=== PATIENT | male | born 1995 | race African-American/Black ===

== ENCOUNTER 2024-06-22 17:00 | Emergency (ER) | payer OTHER ==
[2024-06-22] VITALS (13 sets, daily range): BP systolic 128–163; BP diastolic 85–111
[~2024-06-22] VITALS: Ht 182.9 cm; Wt 116.0 kg
[~2024-06-22 17:00] MED LIST: AMLODIPINE BESY10 MG PO; AUGMENTIN875TAB PO; BENZONATATE200 MG PO; CHLORTHALIDONE25 MG PO; CLARITIN10 M1 PO; CLONIDINE0.2 MG PO; COZAAR100 MG PO; EXCEDRI2 PO; FLONASE NASAL50 MCG; MEDDOSEPAK PO; MULTIVITAMIN1 TA1; NO MEDS; SUDAFED 12HR120 MG PO; THERAFL6 PO
[2024-06-22 17:53] LABS: BASO% 0.5 % (0-3); EOS% 1.4 % (0-8); HEMATOCRIT 48.5 % (39.0-50.0); HEMOGLOBIN 16.2 g/dl (14.0-18.0); IMMATURE GRANULOCYTES 0.2 % (0.0-5.0); LYMPH% 36.2 % (15-41); MEAN CELL VOLUME 84.2 fL CALC (80.0-100.0); MEAN CORPUSCULAR HGB 28.1 pG CALC (26.0-32.0); MEAN CORPUSCULAR HGB CONC 33.4 g/dL CAL (32.0-36.0); MONO% 7.4 % (2-13); NEUT# 5.97 thou/uL (1.82-7.42); NEUT% 54.3 % (42-76); RED BLOOD COUNT 5.76 mill/uL (4.70-6.10); RED CELL DISTRI WIDTH 14.2 % (11.5-15.5)
[2024-06-22 18:22] LABS: ALBUMIN 4.7 g/dL (3.2-5.0); BILIRUBIN, TOTAL 1.4 mg/dL (0.2-1.3); CREATININE 1.9 mg/dL (0.7-1.3); POTASSIUM 4.1 mmol/l (3.5-5.1); TOTAL PROTEIN 8.1 g/dL (6.3-8.2)
[2024-06-22] MEDS ORDERED: SODIUM CHLORIDE 0.9% 1,000 ML IV ONE ×2 (18:35→21:50)
[2024-06-22] MEDS ORDERED: OSELTAMIVIR PHOSPHATE 75 MG/TAB CAP PO ONE (19:05)
[2024-06-22] MEDS ORDERED: ONDANSETRON HCl 4 MG/2 ML SDV IV ONE (19:10)
[2024-06-22] MEDS ORDERED: hydrALAZINE HCL 20 MG/ML VIAL(1 ML) IV ONE (20:10)
[2024-06-22 20:49] LABS: CPK 481 u/l (55-170); LIPASE 40 u/l (23-300); MAGNESIUM 1.8 mg/dL (1.6-2.3)
[2024-06-22] MEDS ORDERED: NAPROXEN500 MG PO (21:52)
== END 2024-06-22 22:16 | disposition home or self-care (01) | DRG 195 ==
LOC: ED 17:00
PROVIDERS: Internal Medicine; Nurse Practitioner
DX: J10.1 Influenza due to other identified influenza virus with other respiratory manifestations (principal); E86.0 Dehydration; N28.9 Disorder of kidney and ureter, unspecified; I10 Essential (primary) hypertension; Z20.822 Contact with and (suspected) exposure to COVID-19
CPT/HCPCS: Q9967